=== PATIENT | female | born 1995 | race African-American/Black ===

== ENCOUNTER 2017-11-03 21:29 | Emergency (ER) | payer BC ==
[~2017-11-03] VITALS: Ht 154.9 cm; Wt 56.7 kg
[~2017-11-03 21:29] MED LIST: AMOX-260 PO; HYDR-79 PO
--- NOTE | 2017-11-03 21:41 | ED.ADGEN ---
Past History Past Medical History: Asthma, Migraines Past Surgical History: No Surgical History Alcohol Use: Occasionally Drug Use: None Adult General Chief Complaint Chief Complaint "... I am having a migraine..." " I took my home meds tramadol.. and still have my headache.. I been worked up so many times... it's just when they are bad I need to come in for a shot..." HPI HPI Patient is a 22 year old female who presents with above hx and complaints onset of typical migraine. Patient denies any trauma. Patient denies any travel. Patient denies any fever or chills. Patient denies any history of immunosuppression. Patient has had previous normal CT. Patient normally takes amitriptyline and tramadol for her pain and the migraines. Patient rates requested be treated clinically and declines CT at this time. Pt states Head been present the past couple days, just seemed worse tonight and not responding to her home meds. Review of Systems Review of Systems Constitutional: Denies fever or chills [] Eyes: Denies change in visual acuity, redness, or eye pain [] HENT: Denies nasal congestion or sore throat [] Respiratory: Denies cough or shortness of breath [] Cardiovascular: No additional information not addressed in HPI [] GI: Denies abdominal pain,, vomiting, bloody stools or diarrhea []plains of nausea : Denies dysuria or hematuria [] Musculoskeletal: Denies back pain or joint pain [] Integument: Denies rash or skin lesions [] Neurologic: Complaints of migraine headache. Denies, focal weakness or sensory changes [] Endocrine: Denies polyuria or polydipsia [] All other systems were reviewed and found to be within normal limits, except as documented in this note. Family History Family History Non-contributory Current Medications Current Medications Current Medications Medications (Trade) Dose Ordered Sig/Sotero Start Time Stop Time Status Last Admin Dose Admin Diphenhydramine HCl (Benadryl) 50 mg 1X ONCE 11/03/17 22:15 11/03/17 22:16 DC 11/03/17 22:50 50 MG Ketorolac Tromethamine (Toradol) 30 mg 1X ONCE 11/03/17 22:15 11/03/17 22:16 DC 11/03/17 22:48 30 MG Lactated Ringer's 1,000 ml @ 1,000 mls/hr 1X ONCE 11/03/17 22:00 11/03/17 22:59 DC 11/03/17 22:45 1,000 MLS/HR Ondansetron HCl (Zofran) 8 mg 1X ONCE 11/03/17 22:15 11/03/17 22:16 DC 11/03/17 22:46 8 MG Promethazine HCl (Phenergan Im) 25 mg 1X ONCE 11/03/17 22:15 11/03/17 22:16 DC 11/03/17 22:51 25 MG Sodium Chloride 50 ml @ As Directed STK-MED ONCE 11/03/17 22:32 11/03/17 22:33 DC Sumatriptan Succinate (Imitrex) 6 mg 1X ONCE 11/03/17 22:15 11/03/17 22:16 DC 11/03/17 22:50 6 MG Valproic Acid (Depacon) 500 mg STK-MED ONCE 11/03/17 22:32 11/03/17 22:33 DC Valproic Acid 500 mg/Sodium Chloride 55 ml @ 55 mls/hr 1X STAT 11/03/17 21:56 11/03/17 22:56 DC 11/03/17 21:56 55 MLS/HR Allergies Allergies Allergies Coded Allergies Type Severity Reaction Last Updated Verified No Known Drug Allergies 09/05/16 No Physical Exam Physical Exam Constitutional: Well developed, well nourished, no acute distress, non-toxic appearance. [] HENT: Normocephalic, atraumatic, bilateral external ears normal, oropharynx moist, no oral exudates, nose normal. [] Eyes: PERRLA, EOMI, conjunctiva normal, no discharge. [] Some photophobia. Neck: Normal range of motion, no tenderness, supple, no stridor. [] Cardiovascular:Heart rate regular rhythm, no murmur [] Lungs & Thorax: Bilateral breath sounds clear to auscultation [] Abdomen: Bowel sounds normal, soft, no tenderness, no masses, no pulsatile masses. [] Complaints of nausea Skin: Warm, dry, no erythema, no rash. [] Back: No tenderness, no CVA tenderness. [] Extremities: No tenderness, no cyanosis, no clubbing, ROM intact, no edema. [] Neurologic: Alert and oriented X 3, normal motor function, normal sensory function, no focal deficits noted. []DTRs +2-3 and patella and brachial. No drift. Ambulatory. Psychologic: Affect normal, judgement normal, mood normal. [] Current Patient Data Lab Results Laboratory Tests Test 11/03/17 21:06 11/03/17 21:54 11/03/17 22:19 POC Urine HCG, Qualitative hcg negative (Negative) Urine Collection Type Unknown Urine Color Yellow Urine Clarity Hazy Urine pH 6.5 Urine Specific [place] 1.025 Urine Protein Neg (NEG-TRACE) Urine Glucose (UA) Neg mg/dL (NEG) Urine Ketones (Stick) Neg mg/dL (NEG) Urine Blood Small (NEG) Urine Nitrite Neg (NEG) Urine Bilirubin Neg (NEG) Urine Urobilinogen Dipstick 0.2 mg/dL (0.2 mg/dL) Urine Leukocyte Esterase Neg (NEG) Urine RBC 6-10 /HPF (0-2) Urine WBC 1-4 /HPF (0-4) Urine Squamous Epithelial Cells Many /LPF Urine Bacteria Few /HPF (0-FEW) Urine Mucus Marked /LPF Urine Opiates Screen Pos (NEG) Urine Methadone Screen Neg (NEG) Urine Barbiturates Neg (NEG) Urine Phencyclidine Screen Neg (NEG) Urine Amphetamine/Methamphetamine Neg (NEG) Urine Benzodiazepines Screen Neg (NEG) Urine Cocaine Screen Neg (NEG) Urine Cannabinoids Screen Pos (NEG) Urine Ethyl Alcohol Neg (NEG) White Blood Count 9.6 x10^3/uL (4.0-11.0) Red Blood Count 4.32 x10^6/uL (3.50-5.40) Hemoglobin 12.9 g/dL (12.0-15.5) Hematocrit 37.6 % (36.0-47.0) Mean Corpuscular Volume 87 fL (79-100) Mean Corpuscular Hemoglobin 30 pg (25-35) Mean Corpuscular Hemoglobin Concent 34 g/dL (31-37) Red Cell Distribution Width 12.9 % (11.5-14.5) Platelet Count 291 x10^3/uL (140-400) Neutrophils (%) (Auto) 64 % (31-73) Lymphocytes (%) (Auto) 29 % (24-48) Monocytes (%) (Auto) 6 % (0-9) Eosinophils (%) (Auto) 1 % (0-3) Basophils (%) (Auto) 0 % (0-3) Neutrophils # (Auto) 6.1 x10^3uL (1.8-7.7) Lymphocytes # (Auto) 2.8 x10^3/uL (1.0-4.8) Monocytes # (Auto) 0.6 x10^3/uL (0.0-1.1) Eosinophils # (Auto) 0.1 x10^3/uL (0.0-0.7) Basophils # (Auto) 0.0 x10^3/uL (0.0-0.2) Erythrocyte Sedimentation Rate 8 (0-25) Sodium Level 139 mmol/L (136-145) Potassium Level 3.2 mmol/L (3.5-5.1) L Chloride Level 103 mmol/L (98-107) Carbon Dioxide Level 28 mmol/L (21-32) Anion Gap 8 (6-14) Blood Urea Nitrogen 11 mg/dL (7-20) Creatinine 0.8 mg/dL (0.6-1.0) Estimated GFR (Cockcroft-Gault) 108.5 Glucose Level 105 mg/dL (70-99) H Calcium Level 8.4 mg/dL (8.5-10.1) L EKG EKG [] Radiology/Procedures Radiology/Procedures Pt. declines CT Head- Exhibit UCAR capacity. Wished to be tx ed clinically. Seems aware of risks of work up for headache without CT. [] Course & Med Decision Making Course & Med Decision Making Pertinent Labs and Imaging studies reviewed. (See chart for details) Take meds as previous directed. Follow-up primary care. Follow-up with neurology. Return of any concerns. [] Final Impression Final Impression 1. Migraine 2. Hypokalemia 3 Marijuana Use Problems: Dragon Disclaimer Dragon Disclaimer This electronic medical record was generated, in whole or in part, using a voice recognition dictation system. KAYLI VINCENT MD Nov 03, 2017 21:41
[2017-11-03] MEDS ORDERED: VALPROATE SODIUM 500 MG in IV NORMAL SALINE 50ML 50 ML IV STA (21:56)
[2017-11-03] MEDS ORDERED: IV RINGERS SOLUTION,LACTATED 1,000 ML IV ONE (22:00)
[2017-11-03] MEDS ORDERED: HYDR-79 PO (22:09)
[2017-11-03] MEDS ORDERED: ONDA8TAB12 PO (22:09)
[2017-11-03] MEDS ORDERED: SUMAtriptan. 6 MG/0.5 ML VIAL SQ ONE (22:15)
[2017-11-03] MEDS ORDERED: PROMETHAZINE IM 25 MG/ML VIAL IM ONE (22:15)
[2017-11-03] MEDS ORDERED: ONDANSETRON PF 4 MG/2 ML VIAL. IV ONE (22:15)
[2017-11-03] MEDS ORDERED: diphenhydrAMINE 50 MG/ML VIAL IV ONE (22:15)
[2017-11-03] MEDS ORDERED: KETOROLAC 30 MG/ML VIAL. IV ONE (22:15)
[2017-11-03 22:29] LABS: BARBITURATES NEG (NEG); BENZODIAZEPINES NEG (NEG); CANNABINOIDS POS (NEG); COCAINE NEG (NEG); METHADONE NEG (NEG); OPIATES POS (NEG); PHENCYCLIDINE NEG (NEG)
[2017-11-03 22:30] LABS: AMPHETAMINE/METHAMPHETAMINE NEG (NEG)
[2017-11-03] MEDS ORDERED: VALPROATE SODIUM 500 MG/5 ML VIAL IV ONE (22:32)
[2017-11-03] MEDS ORDERED: IV NORMAL SALINE 50ML 50 ML ONE (22:32)
[2017-11-03 22:37] LABS: BASO % 0 % (0-3); EOS # 0.1 x10^3/uL (0.0-0.7); EOS % 1 % (0-3); HEMATOCRIT 37.6 % (36.0-47.0); HEMOGLOBIN 12.9 g/dL (12.0-15.5); LYMPH # 2.8 x10^3/uL (1.0-4.8); LYMPH % 29 % (24-48); MEAN CORPUSCULAR HEMOGLOBIN 30 pg (25-35); MEAN CORPUSCULAR HGB CONC 34 g/dL (31-37); MEAN CORPUSCULAR VOLUME 87 fL (79-100); MONO # 0.6 x10^3/uL (0.0-1.1); MONO % 6 % (0-9); NEUT # 6.1 x10^3uL (1.8-7.7); NEUT % 64 % (31-73); PLATELET COUNT 291 x10^3/uL (140-400); RED BLOOD COUNT 4.32 x10^6/uL (3.50-5.40); RED CELL DISTRIBUTION WIDTH 12.9 % (11.5-14.5); WHITE BLOOD COUNT 9.6 x10^3/uL (4.0-11.0)
[2017-11-03 22:42] LABS: CALCIUM 8.4 mg/dL (8.5-10.1); CREATININE 0.8 mg/dL (0.6-1.0); GFR 108.5; POTASSIUM 3.2 mmol/L (3.5-5.1)
[2017-11-03 22:46] LABS: BACTERIA,URINE FEW /HPF (0-FEW); BILIRUBIN,URINE NEG (NEG); CLARITY,URINE HAZY; COLOR,URINE YELLOW; GLUCOSE,URINE NEG (NEG); NITRITE,URINE NEG (NEG); SQUAMOUS EPITHELIAL CELL,UR MANY /LPF; UROBILINOGEN,URINE 0.2 mg/dL (0.2 mg/dL)
[2017-11-03] MEDS ORDERED: SUMA100T3 PO (23:32)
[2017-11-04 00:28] LABS: SEDIMENTATION RATE 8 (0-25)
[2017-11-04 00:30] VITALS: BP 112/63
== END 2017-11-04 00:32 | disposition home or self-care (01) ==
LOC: ER 21:29
DX: G43.909 Migraine, unspecified, not intractable, without status migrainosus (principal); E87.6 Hypokalemia; J45.909 Unspecified asthma, uncomplicated; F12.90 Cannabis use, unspecified, uncomplicated
CPT/HCPCS: 36415; 80048; 80307; 81001; 81025; 85025; 85651; 96365; 96366; 96372; 96375; 99285; J1200; J1885; J2405; J2550; J3030; J3490; J7120; G0479